=== PATIENT | male | born 1955 | race Caucasian/White ===

== ENCOUNTER 2022-01-29 14:59 | Outpatient (RCR) | payer MEDICARE, SELFPAY ==
--- NOTE | 2022-01-29 16:02 | PTOPEVAL ---
PHYSICAL THERAPY EVALUATION AND PLAN OF CARE 01-29-22 Thank you for referring Stewart Guidry to [facility]. Stewart's plan of treatment is? 0-2 x/week for 4 weeks. He is to call for any questions or if he has increased s/s, to call for additional treatment appointment. Please review, sign, date and return this plan of care HOLA. I agree with and certify that the following plan of care is medically necessary. Referring Physician Date Attending Provider: Ryan Mina MD CC: Michael Long MD--per pt request, his general physician Past Medical History Source of Past Medical History Patient Neurological History Hx Neurological Disorders No Significant History Cardiovascular History Hx Hypertension Yes: meds Respiratory History Hx Other Respiratory Disorders Yes: seasonal allergies Gastrointestinal History Hx Gastrointestinal Disorders No Significant History Genitourinary History Hx Genitourinary Disorders No Significant History Musculoskeletal History Hx Musculoskeletal Disorders No Significant History Endocrine History Hx Endocrine Disorders No Significant History HEENT History Hx HEENT Disorders No Significant History Evaluation Information Diagnosis vestibular neuritis Onset November 2021 Pain Assessment Self Report Self Report Pain Level 0 Pain Score Pain Score 0: Self Report Vestibular Evaluation Past Vestibular History Sinus/Allergy Issues Medical History Comments wear glasses- vision checked last week, no change in script ; took prednisone for 3 weeks, after 2 weeks felt great/ normal, then had symptoms again, called dr and sent order for PT treatment; had tick and removed-- checked blood work and gave preventative antibiotic; about 2 months ago, had ear wax build up on R ear, dr removed MEDICATIONS: losortan, amlodipine, pantoprazole, alprazolam; take over the counter allergy meds regularly--seems to help; Other Symptoms Comments have not had any symptoms in about 1 week; prior one week ago: dizzy at the beginning, but last symptoms: lightheaded, head pressure, fatigue- just want to lie down and sleep;
--- NOTE | 2022-03-07 13:42 | PCPTNOTE ---
PHYSICAL THERAPY DISCHARGE 03-07-22 Attending Provider: Ryan Mina MD Patient:Stewart Guidry Date of :1955 Stewart has not returned for any further treatments since the initial evaluation on 01/29/2022, therefore he will be discharged at this time. The goals were not addressed. Thank you for referring Mr. Guidry to [facility]. Please review, sign, date and return this discharge summary HOLA. I have been updated about the patient's current status and I agree with discharge from the above service at this time. Referring Physician Date
== END 2022-04-17 09:15 | disposition home or self-care (01) ==
LOC: ANHPT 14:59
PROVIDERS: PCP Internal Medicine; Visit Provider Otolaryngology
DX: R26.89 Other abnormalities of gait and mobility (principal); H81.20 Vestibular neuronitis, unspecified ear
CPT/HCPCS: 97161